=== PATIENT | female | born 1990 | race Caucasian/White ===

== ENCOUNTER 2019-06-09 18:36 | Emergency (ER) | payer OTHER ==
[~2019-06-09] VITALS: Ht 167.6 cm; Wt 74.8 kg
[2019-06-09 19:02] VITALS: BP 124/70
--- NOTE | 2019-06-09 19:17 | NUR ---
PT AMBULATED TO BED 11
--- NOTE | 2019-06-09 19:30 | NUR ---
PT PRESENTED TO ED C/O EAR PAIN FOR 1 WEEK, PT STATED "I HAVE SWIMMERS EAR ACCORDING TO MY DOCTOR", C/O FEELING SOMETHING INSIDE THE EAR AND HARD TO HEAR. NO DRAINAGE NOTED, NO REDNESS NOTED, PAIN OF 8/10. AAOX4 RR EVEN UNLABORED, NO N/V/D, IN NO DISTRESS WILL CONTINUE TO MONITOR CLOSELY, ED MD MADE AWARE. WILL CONTINUE TO MONITOR CLOSELY.
[2019-06-09 20:34] VITALS: BP 124/70
--- NOTE | 2019-06-09 20:34 | NUR ---
Patient discharged with v/s stable. Written and verbal after care instructions given and explained. Patient alert, oriented and verbalized understanding of instructions. Ambulatory with steady gait. All questions addressed prior to discharge. ID band removed. Patient advised to follow up with PMD. Rx of tramadol, cortisporin, motrin was given. Patient educated on indication of medication including possible reaction and side effects. Opportunity to ask questions provided and answered. pt stated her pain level was 3/10 prior to d/c
== END 2019-06-09 20:34 | disposition home or self-care (01) ==
LOC: MED 18:36
DX: H60.91 Unspecified otitis externa, right ear (principal)
CPT/HCPCS: 99283